=== PATIENT | male | born 1955 | race Caucasian/White ===

== ENCOUNTER 2017-02-23 23:12 | Emergency (ER) | payer BC, OTHER ==
[~2017-02-23] VITALS: Ht 182.9 cm; Wt 101.5 kg
[~2017-02-23 23:12] MED LIST: CITA10TA4 PO; LOSA50TA PO; NAPR500T PO; PANT40TA3 PO; ZYRT10TA PO
[2017-02-23 23:26] VITALS: BP 128/72; PULSE 57; RESP 16; TEMP 97.5; O2SAT 95
--- NOTE | 2017-02-23 23:45 | PD ---
HPI Chief Complaint: urinating clots Time Seen by Provider: 23:43 Travel History International Travel<30 days: No Contact w/Intl Traveler<30days: No Traveled to known affect area: No History of Present Illness HPI The patient is a 61-year-old male who has a history of prostate cancer and had a biopsy morning, 4 days ago. He comes in because of penile bleeding. He is able to make urine but states he is passing some clots. He denies any fever. He is not on any anticoagulants. PFSH Past Medical History Diminished Hearing: No Past Surgical History Cholecystectomy: Yes Tonsillectomy: Yes Other Surgery: Yes (plates in left hand and arm) Social History Alcohol Use: Yes (beer daily 3) Tobacco Use: No (chews tobacco but quit 3 weeks ago) Substance Use: No Allergies-Medications (Allergen,Severity, Reaction): Coded Allergies: No Known Allergies (Verified , 02/23/17) Reported Meds & Prescriptions Reported Meds & Active Scripts Active Reported Cetirizine (Cetirizine HCl) 10 Mg Tab 10 Mg PO DAILY Naproxen 500 Mg Tab 500 Mg PO BID Losartan (Losartan Potassium) 50 Mg Tab 50 Mg PO DAILY Citalopram (Citalopram Hydrobromide) 10 Mg Tab 5 Mg PO DAILY Pantoprazole (Pantoprazole Sodium) 40 Mg Tab 40 Mg PO DAILY Review of Systems Except as stated in HPI: all other systems reviewed are Neg Physical Exam Narrative GENERAL: The patient is alert, oriented 3 in no apparent distress. He does not appear anemic. His vital signs are normal. SKIN: Focused skin assessment warm/dry. HEAD: Atraumatic. Normocephalic. EYES: Pupils equal and round. No scleral icterus. No injection or drainage. ENT: No nasal bleeding or discharge. Mucous membranes pink and moist. NECK: Trachea midline. No JVD. CARDIOVASCULAR: Regular rate and rhythm. No murmur appreciated. RESPIRATORY: No accessory muscle use. Clear to auscultation. Breath sounds equal bilaterally. GASTROINTESTINAL: Abdomen soft, non-tender, nondistended. Hepatic and splenic margins not palpable. MUSCULOSKELETAL: No obvious deformities. No clubbing. No cyanosis. No edema. NEUROLOGICAL: Awake and alert. No obvious cranial nerve deficits. Motor grossly within normal limits. Normal speech. PSYCHIATRIC: Appropriate mood and affect; insight and judgment normal. Data Data Last Documented VS Vital Signs Date Time Temp Pulse Resp B/P Pulse Ox O2 Delivery O2 Flow Rate FiO2 02/24/17 00:30 58 18 134/68 97 Room Air 02/23/17 23:26 97.5 Orders Complete Blood Count With Diff (02/23/17 23:43) Urinalysis - C+S If Indicated (02/23/17 23:43) Labs Laboratory Tests Test 02/24/17 02/24/17 00:00 00:05 Urine Color RED Urine Turbidity TURBID Urine pH 7.5 Urine Specific [place] GREATER THAN 1.035 Urine Protein 300 OR GREATER mg/dL Urine Glucose (UA) 250 mg/dL Urine Ketones NEG mg/dL Urine Occult Blood LARGE Urine Nitrite POS Urine Bilirubin NEG Urine Leukocyte Esterase TRACE Urine RBC INNUM /hpf Urine WBC 0-2 /hpf Urine Squamous Epithelial 0-5 /hpf Cells Microscopic Urinalysis Comment CULT NOT INDICATED White Blood Count 7.3 TH/MM3 Red Blood Count 4.26 MIL/MM3 Hemoglobin 14.3 GM/DL Hematocrit 40.6 % Mean Corpuscular Volume 95.4 FL Mean Corpuscular Hemoglobin 33.5 PG Mean Corpuscular Hemoglobin 35.1 % Concent Red Cell Distribution Width 11.6 % Platelet Count 178 TH/MM3 Mean Platelet Volume 7.4 FL Neutrophils (%) (Auto) 65.4 % Lymphocytes (%) (Auto) 21.9 % Monocytes (%) (Auto) 10.3 % Eosinophils (%) (Auto) 2.0 % Basophils (%) (Auto) 0.4 % Neutrophils # (Auto) 4.8 TH/MM3 Lymphocytes # (Auto) 1.6 TH/MM3 Monocytes # (Auto) 0.8 TH/MM3 Eosinophils # (Auto) 0.1 TH/MM3 Basophils # (Auto) 0.0 TH/MM3 CBC Comment DIFF FINAL Differential Comment MDM Medical Decision Making Medical Screen Exam Complete: Yes Emergency Medical Condition: Yes Medical Record Reviewed: Yes Interpretation(s) The urine shows large amounts of blood with innumerable red cells. The CBC is normal, the patient is not anemic. Differential Diagnosis Urethral obstruction from clots, hematuria without urethral obstruction, anemia Narrative Course The patient has hematuria without urethral obstruction. Should he be unable to urinate then he will need a Blood catheter and should return to emergency department. He is not losing enough blood to the urine to make him anemic at this time. He should follow-up with his urologist later this week. Diagnosis Primary Impression: Hematuria, gross Additional Impression: History of prostate surgery Additional Instructions: As we discussed, if you cannot urinate you will have to return to emergency department for that Blood catheter. I hope this does not happen. On the fifth call your urologist to set up an appointment. Tell his medical secretary receptionist that you are urinating clots and need to be seen as soon as possible. Increase your liquid intake. Disposition: 01 DISCHARGE HOME Condition: Stable Clint Xiao MD Feb 23, 2017 23:45
[2017-02-24] MEDS ORDERED: CETI10 PO (00:02)
[2017-02-24 00:18] LABS: AUTOMATED NEUTROPHIL # 4.8 TH/MM3 (1.8-7.7); BASOPHIL % 0.4 % (0.0-2.0); EOSINOPHIL # 0.1 TH/MM3 (0-0.4); HEMATOCRIT 40.6 % (39.0-51.0); HEMO FLAGS DIFF FINAL; LYMPH % 21.9 % (9.0-44.0); LYMPHOCYTE # 1.6 TH/MM3 (1.0-4.8); MEAN CELL VOLUME 95.4 FL (80.0-100.0); MEAN CORPUSCULAR HEMOGLOBIN 33.5 PG (27.0-34.0); MEAN CORPUSCULAR HGB CONC 35.1 % (32.0-36.0); MONO % 10.3 % (0.0-8.0); NEUT % 65.4 % (16.0-70.0); PLATELET COUNT 178 TH/MM3 (150-450); RED BLOOD COUNT 4.26 MIL/MM3 (4.50-5.90); RED CELL DISTRIBUTION WIDTH 11.6 % (11.6-17.2); WHITE BLOOD COUNT 7.3 TH/MM3 (4.0-11.0)
[2017-02-24 00:23] LABS: BLOOD, URINE LARGE (NEG); GLUCOSE,URINE 250 mg/dL (NEG); KETONE, URINE NEG (NEG); PH, URINE 7.5 (5.0-8.5)
[2017-02-24 00:25] LABS: NITRITE,URINE POS (NEG)
[2017-02-24 00:26] LABS: RBC, URINE INNUM /hpf (0-3); SQUAMOUS EPITHELIAL CELL URINE 0-5 /hpf (0-5); URINE COLOR RED (YELLW/STRAW)
[2017-02-24 00:27] LABS: WBC, URINE 0-2 /hpf (0-5)
[2017-02-24 00:28] LABS: COMMENT (UR) CULT NOT INDICATED; CULTURE IF INDICATED CULT NOT INDICATED
[2017-02-24 00:30] VITALS: BP 134/68; PULSE 58; RESP 18; O2SAT 97
[2017-02-24 01:45] VITALS: BP 139/71
== END 2017-02-24 01:48 | disposition home or self-care (01) ==
LOC: PHED 23:12
DX: R31.0 Gross hematuria (principal); Z85.46 Personal history of malignant neoplasm of prostate
CPT/HCPCS: 81001; 85025; 99283

== ENCOUNTER 2017-10-31 15:23 | Observation (INO) | payer OTHER ==
[2017-10-31] VITALS (10 sets, daily range): BP systolic 82–153; BP diastolic 54–94; PULSE 60–91; RESP 18; TEMP 96.4–97.5; O2SAT 92–99
[~2017-10-31] VITALS: Ht 182.9 cm; Wt 102.8 kg
[~2017-10-31 15:23] MED LIST changes: +CETI10 PO; -NAPR500T PO; +NAPR500T2 PO; -ZYRT10TA PO
[2017-10-31] MEDS ORDERED: SODIUM CHLORIDE 0.9% FLUSH 10 ML FLUSH IVF PRN (15:30)
--- NOTE | 2017-10-31 15:47 | PD ---
HPI Chief Complaint: Neuro Symptoms/ Deficits Time Seen by Provider: 15:30 Travel History International Travel<30 days: No Contact w/Intl Traveler<30days: No Traveled to known affect area: No History of Present Illness HPI 62-year-old male arrives to the ER by private vehicle. About 1 hour prior to ER arrival the patient was at home with company about fci through his first bottle of beer when he became somewhat stuporous. The patient walked into his house and ultimately became unresponsive for a minute. The daughter believes there might have been a facial droop on the right side. Total duration of altered mental status was on the order of 10 minutes. Patient was therefore brought right here. In the ER the patient has no specific medical complaints and states he has been in his normal state of health, good health, for the past several days. There is no new or different medication. No similar prior events. No history of diabetes hypertension hyperlipidemia or coronary artery disease. PFSH Past Medical History Cancer: Yes (Prostate cancer) Diminished Hearing: No Hypertension: Yes Inguinal Hernia: Yes Past Surgical History Cholecystectomy: Yes Tonsillectomy: Yes Other Surgery: Yes (plates in left hand and arm, inguinal hernia repair) Social History Alcohol Use: Yes (Daily ) Tobacco Use: No Substance Use: No Allergies-Medications (Allergen,Severity, Reaction): Coded Allergies: No Known Allergies (Verified Allergy, Unknown, 10/31/17) Reported Meds & Prescriptions Reported Meds & Active Scripts Active Reported Cetirizine (Cetirizine HCl) 10 Mg Tab 10 Mg PO DAILY Losartan (Losartan Potassium) 50 Mg Tab 50 Mg PO DAILY Citalopram (Citalopram Hydrobromide) 10 Mg Tab 5 Mg PO DAILY Pantoprazole (Pantoprazole Sodium) 40 Mg Tab 40 Mg PO DAILY Review of Systems Except as stated in HPI: all other systems reviewed are Neg Physical Exam Narrative GENERAL: 62-year-old male well-nourished well-developed no acute distress pleasant Vital Signs Date Time Temp Pulse Resp B/P (MAP) Pulse Ox O2 Delivery O2 Flow Rate FiO2 10/31/17 15:43 97 Room Air 10/31/17 15:40 71 18 82/60 (67) 97 Room Air 10/31/17 15:38 97 Room Air 10/31/17 15:25 97.5 72 18 90/54 (66) 92 SKIN: Warm and dry. HEAD: Atraumatic. Normocephalic. EYES: Pupils equal and round. No scleral icterus. No injection or drainage. ENT: No nasal bleeding or discharge. Mucous membranes pink and moist. NECK: Trachea midline. No JVD. CARDIOVASCULAR: Regular rate and rhythm. RESPIRATORY: No accessory muscle use. Clear to auscultation. Breath sounds equal bilaterally. GASTROINTESTINAL: Abdomen soft, non-tender, nondistended. Hepatic and splenic margins not palpable. MUSCULOSKELETAL: Extremities without clubbing, cyanosis, or edema. No obvious deformities. NEUROLOGICAL: Cranial nerves III through XII are normal. Speech memory mentation normal. There is no pronator drift. Motor function upper and lower extremities is normal 5 over 5 throughout and symmetric. PSYCHIATRIC: Appropriate mood and affect; insight and judgment normal. Data Data Last Documented VS Vital Signs Date Time Temp Pulse Resp B/P (MAP) Pulse Ox O2 Delivery O2 Flow Rate FiO2 10/31/17 16:01 65 18 108/64 (79) 98 Room Air 10/31/17 15:25 97.5 Orders Orders Electrocardiogram (10/31/17 15:30) Prothrombin Time / Inr (Pt) (10/31/17 15:30) Act Partial Throm Time (Ptt) (10/31/17 15:30) Complete Blood Count With Diff (10/31/17 15:30) Comprehensive Metabolic Panel (10/31/17 15:30) Creatine Kinase (Cpk) (10/31/17 15:30) Drug Screen, Random Urine (10/31/17 15:30) Troponin I (10/31/17 15:30) Urinalysis - C+S If Indicated (10/31/17 15:30) Ct Brain W/O Iv Contrast(Rout) (10/31/17 15:30) Chest, Single Ap (10/31/17 15:30) Ecg Monitoring (10/31/17 15:30) Iv Access Insert/Monitor (10/31/17 15:30) Resp Oxygen Nc Stroke (10/31/17 ) Oximetry (10/31/17 15:30) Blood Glucose (10/31/17 15:30) Sodium Chloride 0.9% Flush (Ns Flush) (10/31/17 15:30) Ct Pulmonary Angiogram (10/31/17 15:42) Alcohol (Ethanol) (10/31/17 15:47) Drug Screen, Random Urine (10/31/17 15:47) Sodium Chlor 0.9% 1000 Ml Inj (Ns 1000 M (10/31/17 16:00) Iohexol 350 Inj (Omnipaque 350 Inj) (10/31/17 16:08) Admit Order (Ed Use Only) (10/31/17 ) Carbon Lamp Cleaner / Telemetry MALLORY.Q8H (10/31/17 16:51) Vital Signs (Adult) Q4H (10/31/17 16:51) Diet Heart Healthy (10/31/17 Dinner) Activity Bed Rest (10/31/17 16:51) Labs Laboratory Tests Test 10/31/17 15:36 White Blood Count 7.4 TH/MM3 Red Blood Count 4.22 MIL/MM3 Hemoglobin 14.1 GM/DL Hematocrit 40.0 % Mean Corpuscular Volume 94.7 FL Mean Corpuscular Hemoglobin 33.3 PG Mean Corpuscular Hemoglobin Concent 35.1 % Red Cell Distribution Width 11.3 % Platelet Count 208 TH/MM3 Mean Platelet Volume 7.3 FL Neutrophils (%) (Auto) 59.8 % Lymphocytes (%) (Auto) 27.7 % Monocytes (%) (Auto) 10.2 % Eosinophils (%) (Auto) 1.6 % Basophils (%) (Auto) 0.7 % Neutrophils # (Auto) 4.4 TH/MM3 Lymphocytes # (Auto) 2.0 TH/MM3 Monocytes # (Auto) 0.8 TH/MM3 Eosinophils # (Auto) 0.1 TH/MM3 Basophils # (Auto) 0.1 TH/MM3 CBC Comment DIFF FINAL Differential Comment Prothrombin Time 10.1 SEC Prothromb Time International Ratio 1.0 RATIO Activated Partial Thromboplast Time 22.4 SEC Blood Urea Nitrogen 15 MG/DL Creatinine 1.20 MG/DL Random Glucose 130 MG/DL Total Protein 7.2 GM/DL Albumin 3.7 GM/DL Calcium Level 7.9 MG/DL Alkaline Phosphatase 65 U/L Aspartate Amino Transf (AST/SGOT) 21 U/L Alanine Aminotransferase (ALT/SGPT) 30 U/L Total Bilirubin 0.5 MG/DL Sodium Level 139 MEQ/L Potassium Level 3.4 MEQ/L Chloride Level 103 MEQ/L Carbon Dioxide Level 26.7 MEQ/L Anion Gap 9 MEQ/L Estimat Glomerular Filtration Rate 61 ML/MIN Total Creatine Kinase 91 U/L Troponin I LESS THAN 0.02 NG/ML Ethyl Alcohol Level 3 MG/DL [facility] Medical Decision Making Medical Screen Exam Complete: Yes Emergency Medical Condition: Yes Medical Record Reviewed: Yes Differential Diagnosis syncope, tia, etoh, arrhytmia, PE Narrative Course CBC & BMP Diagram 10/31/17 15:36 Total Protein 7.2, Albumin 3.7, Calcium Level 7.9 L, Alkaline Phosphatase 65, Aspartate Amino Transf (AST/SGOT) 21, Alanine Aminotransferase (ALT/SGPT) 30, Total Bilirubin 0.5 Tn < 0.02 EtOH < 3 INR 1.0 EKG: sinus, rate 72, possible LVF Last Impressions CT Angiography 10/31/17 1542 Signed Impressions: Service Date/Time: Tuesday, October 31, 2017 15:49 - CONCLUSION: No evidence of pulmonary embolus Quang Butterfield MD Head CT 10/31/17 1530 Signed Impressions: Service Date/Time: Tuesday, October 31, 2017 15:46 - CONCLUSION: No acute intracranial findings. Quang Butterfield MD Chest X-Ray 10/31/17 1530 Signed Impressions: Service Date/Time: Tuesday, October 31, 2017 15:38 - CONCLUSION: Widened mediastinal silhouette air present tortuous or dilated aorta. Mildly prominent cardiac silhouette. Quang Butterfield MD Syncope event possible TIA BP increased to 137/77 after 1L NS case d/w Dr Singleton for [facility] Diagnosis Primary Impression: Syncope Qualified Codes: R55 - Syncope and collapse Additional Impression: Hypotension Qualified Codes: I95.9 - Hypotension, unspecified Admitting Information Admitting Physician Requests: Observation Kelechi Rai MD Oct 31, 2017 15:47
[2017-10-31 15:54] LABS: AUTOMATED NEUTROPHIL # 4.4 TH/MM3 (1.8-7.7); BASOPHIL # 0.1 TH/MM3 (0-0.2); BASOPHIL % 0.7 % (0.0-2.0); EOSINOPHIL # 0.1 TH/MM3 (0-0.4); EOSINOPHIL % 1.6 % (0.0-4.0); HEMOGLOBIN 14.1 GM/DL (13.0-17.0); LYMPH % 27.7 % (9.0-44.0); MEAN CELL VOLUME 94.7 FL (80.0-100.0); MEAN CORPUSCULAR HEMOGLOBIN 33.3 PG (27.0-34.0); MEAN CORPUSCULAR HGB CONC 35.1 % (32.0-36.0); MEAN PLATELET VOLUME 7.3 FL (7.0-11.0); MONO % 10.2 % (0.0-8.0); MONOCYTE # 0.8 TH/MM3 (0-0.9); NEUT % 59.8 % (16.0-70.0); PLATELET COUNT 208 TH/MM3 (150-450); RED BLOOD COUNT 4.22 MIL/MM3 (4.50-5.90); RED CELL DISTRIBUTION WIDTH 11.3 % (11.6-17.2); WHITE BLOOD COUNT 7.4 TH/MM3 (4.0-11.0)
--- NOTE | 2017-10-31 15:59 | RADRPT ---
EXAM DATE/TIME: 10/31/2017 15:38 [facility] COMPARISON: No previous studies available for comparison. INDICATIONS : Syncope, slurred speach, chest pains MEDICAL HISTORY : Hypertension. SURGICAL HISTORY : None. ENCOUNTER: Initial ACUITY: 1 day PAIN SCORE: 3/10 LOCATION: Bilateral chest FINDINGS: Single AP view of the chest. Low lung volumes. The lungs are clear. Mediastinal silhouette is somewha t widened. Cardiac silhouette is mildly prominent. No evidence of pleural effusion or pneumothorax. CONCLUSION: Widened mediastinal silhouette air present tortuous or dilated aorta. Mildly prominent ca rdiac silhouette. Quang Butterfield MD on October 31, 2017 at 15:56 Board Certified Radiologist. This report was verified electronically.
[2017-10-31] MEDS ORDERED: SODIUM CHLOR 0.9% 1000 ML INJ 1,000 ML IV ONE (16:00)
[2017-10-31 16:05] LABS: CHLORIDE 103 MEQ/L (98-107); SODIUM (NA) 139 MEQ/L (136-145)
[2017-10-31 16:08] LABS: CALCIUM 7.9 MG/DL (8.5-10.1)
[2017-10-31] MEDS ORDERED: IOHEXOL 350 MG/ML 10 ML VIAL (for RAD DIAG) IVCONTRAST ONE (16:08)
[2017-10-31 16:09] LABS: ALBUMIN 3.7 GM/DL (3.4-5.0); BICARBONATE 26.7 MEQ/L (21.0-32.0); BLOOD UREA NITROGEN 15 MG/DL (7-18); GLUCOSE,RANDOM 130 MG/DL (74-106)
[2017-10-31 16:10] LABS: PROTHROMBIN TIME - PATIENT 10.1 SEC (9.8-11.6)
[2017-10-31 16:12] LABS: ALT (GPT) 30 U/L (12-78); AST (GOT) 21 U/L (15-37); GLOMERULAR FILTRATION RATE 61 ML/MIN (>89)
[2017-10-31 16:13] LABS: TOTAL BILIRUBIN ADULT 0.5 MG/DL (0.2-1.0)
[2017-10-31 16:14] LABS: TOTAL PROTEIN 7.2 GM/DL (6.4-8.2)
[2017-10-31 16:15] LABS: ALKALINE PHOSPHATASE 65 U/L (45-117)
[2017-10-31 16:17] LABS: TROPONIN I LESS THAN 0.02 NG/ML (0.02-0.05)
--- NOTE | 2017-10-31 16:21 | RADRPT ---
EXAM DATE/TIME: 10/31/2017 15:46 [facility] COMPARISON: No previous studies available for comparison. INDICATIONS : Slurred speech, evaluate for TIA, low BP,dizziness. RADIATION DOSE: 65.68 CTDIvol (mGy) ; Tabletop CT Head MEDICAL HISTORY : Hypertension. prostate ca SURGICAL HISTORY : Tonsillectomy. Cholecystectomy.Inguinal hernia repair. ENCOUNTER: Initial ACUITY: 1 day PAIN SCALE: 0/10 LOCATION: cranial TECHNIQUE: Multiple contiguous axial images were obtained of the head. Using automated exposure control and adj ustment of the mA and/or kV according to patient size, radiation dose was kept as low as reasonably a chievable to obtain optimal diagnostic quality images. DICOM format image data is available electro nically for review and comparison. FINDINGS: CEREBRUM: The ventricles are normal for age. No evidence of midline shift, mass lesion, hemorrhage or acute in farction. No extra-axial fluid collections are seen. POSTERIOR FOSSA: The cerebellum and brainstem are intact. The 4th ventricle is midline. The cerebellopontine angle i s unremarkable. EXTRACRANIAL: The visualized portion of the orbits is intact. SKULL: The calvaria is intact. No evidence of skull fracture. CONCLUSION: No acute intracranial findings. Quang Butterfield MD on October 31, 2017 at 16:18 Board Certified Radiologist. This report was verified electronically.
--- NOTE | 2017-10-31 16:24 | RADRPT ---
EXAM DATE/TIME: 10/31/2017 15:49 [facility] COMPARISON: No previous studies available for comparison. INDICATIONS : Syncopal episode IV CONTRAST: 75 cc Omnipaque 350 (iohexol) IV RADIATION DOSE: 17.26 CTDIvol (mGy) MEDICAL HISTORY : Hypertension. ca prostate SURGICAL HISTORY : Cholecystectomy. Tonsillectomy.Inguinal hernia repair. ENCOUNTER: Initial ACUITY: 1 day PAIN SCALE: 0/10 LOCATION: chest TECHNIQUE: Volumetric scanning of the chest was performed using a pulmonary embolism protocol MIP images were re constructed. Using automated exposure control and adjustment of the mA and/or kV according to patien t size, radiation dose was kept as low as reasonably achievable to obtain optimal diagnostic quality images. DICOM format image data is available electronically for review and comparison. Follow-up recommendations for detected pulmonary nodules are based at a minimum on nodule size and pa tient risk factors according to Fleischner Society Guidelines. FINDINGS: PULMONARY ARTERIES: No filling defects are seen in the pulmonary arteries through the segmental level. LUNGS: There is no consolidation or pneumothorax . No concerning pulmonary nodule is visualized. PLEURAE: There is no pleural thickening or pleural effusion. MEDIASTINUM: The thoracic aorta is tortuous resulting in the widened silhouette on chest x-ray. No enlarged lymph nodes. No aneurysmal dilatation. MUSCULOSKELETAL: Within normal limits for patient age. MISCELLANEOUS: The visualized upper abdominal organs demonstrate no acute abnormality. CONCLUSION: No evidence of pulmonary embolus Quang Butterfield MD on October 31, 2017 at 16:20 Board Certified Radiologist. This report was verified electronically.
[2017-10-31] MEDS ORDERED: SODIUM CHLORIDE 0.9% FLUSH 10 ML FLUSH IV FLUSH PRN (17:00)
[2017-10-31] MEDS ORDERED: POTASSIUM CHLORIDE 20 MEQ CONTROLLED RELEASE TAB PO ONE (17:15)
[2017-10-31] MEDS: ASPIRIN 325 MG TAB PO SCH (17:36)
[2017-10-31 17:40] LABS: BILIRUBIN, URINE NEG (NEG); BLOOD, URINE TRACE (NEG); GLUCOSE,URINE NEG (NEG); KETONE, URINE NEG (NEG); NITRITE,URINE NEG (NEG); PH, URINE 5.5 (5.0-8.5); URINE COLOR YELLOW (YELLW/STRAW); URINE LEUKOCYTE ESTERASE NEG (NEG)
[2017-10-31 17:50] LABS: RBC, URINE 0-3 /hpf (0-3); WBC, URINE 0-2 /hpf (0-5)
[2017-10-31] MEDS ORDERED: PILL SPLITTER OTHER PRN (19:15)
[2017-10-31] MEDS: SODIUM CHLORIDE 0.9% FLUSH 10 ML FLUSH IV FLUSH SCH (21:04)
--- NOTE | 2017-10-31 21:54 | EKG ---
Date Performed: 10/31/2017 Time Performed: 15:27:52 PTAGE: 62 years EKG: Sinus rhythm VOLTAGE CRITERIA FOR LVH ABNORMAL ECG Compared to prior electrocardiogram, Nonspecific T wave change s are less marked . PREVIOUS TRACING : 06/22/2012 18.46 DOCTOR: Luis Simon Interpretating Date/Time 10/31/2017 21:52:36
[2017-11-01] VITALS (8 sets, daily range): BP systolic 105–163; BP diastolic 59–103; PULSE 55–93; RESP 16–20; TEMP 97–98.9; O2SAT 95–100
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
[2017-11-01] MEDS ORDERED: GADODIAMIDE PF 287 MG/ML 20 ML VIAL (for RAD MRI) IVCONTRAST ONE (09:21)
--- NOTE | 2017-11-01 09:22 | RADRPT ---
EXAM DATE/TIME: 11/01/2017 08:35 [facility] COMPARISON: No previous studies available for comparison. INDICATIONS : Syncope with collapse. MEDICAL HISTORY : Benign prostatic hyperplasia, (BPH) Carcinoma, prostate. SURGICAL HISTORY : Cholecystectomy. Inguinal hernia repair. Tonsillectomy. ENCOUNTER: Initial ACUITY: 1 day PAIN SCORE: 0/10 LOCATION: cranial Please note a normal MRA of the brain does not entirely exclude the possibility of a small aneurysm, nor the possibility of distal intracranial vessel disease. TECHNIQUE: 3D time of flight MRA was performed. Source images, multiplanar STS MIP, and 3D volume MIP reconstru ctions were reviewed. FINDINGS: There is excellent visualization of the major intracranial arteries out to the second-order branch ve ssels. The A1 segment of the right anterior cerebral artery is hypoplastic. The left posterior cerebral vidal ry is supplied by the anterior circulation. There is no evidence of luminal irregularity or stenosis. There is notice of focal aneurysm or vascul ar displacement. CONCLUSION: 1. 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 2. Otherwise normal exam without evidence of significant atherosclerotic disease, vasculopathy, aneur ysm or vascular displacement Uli Thibodeaux MD on November 01, 2017 at 9:16 Board Certified Radiologist. This report was verified electronically.
--- NOTE | 2017-11-01 09:27 | RADRPT ---
EXAM DATE/TIME: 11/01/2017 08:35 [facility] COMPARISON: No previous studies available for comparison. INDICATIONS : Syncope with collapse. CONTRAST: 20 cc Omniscan (gadodiamide) IV MEDICAL HISTORY : Carcinoma, prostate. Benign prostatic hyperplasia, (BPH) SURGICAL HISTORY : Tonsillectomy. Cholecystectomy. Inguinal hernia repair. ENCOUNTER: Initial ACUITY: 1 day PAIN SCORE: 0/10 LOCATION: cranial TECHNIQUE: Multiplanar, multisequence MRI of the brain was performed both prior to and following the administrat ion of paramagnetic contrast. FINDINGS: CEREBRUM: The ventricles are normal for age. No evidence of midline shift, mass lesion, hemorrhage or acute in farction. No extraaxial fluid collections are seen. The pituitary gland and suprasellar cistern are normal in configuration. WHITE MATTER: No significant signal abnormalities are seen in the white matter. POSTERIOR FOSSA: The cerebellum and brainstem are intact. The 4th ventricle is midline. The cerebellopontine angle is unremarkable. The cerebellar tonsils are normal in position. DIFFUSION IMAGING: No focal areas of restricted diffusion are seen. No evidence of acute infarction. EXTRACRANIAL: The visualized portions of the orbits and paranasal sinuses are unremarkable. POST-CONTRAST: No abnormal areas of parenchymal or dural enhancement. No evidence of blood-brain barrier breakdown. CONCLUSION: 1. Unremarkable exam. 2. No evidence of acute infarct, hemorrhage, mass or edema. 3. No enhancing intra-or extra axial lesions. Uli Thibodeaux MD on November 01, 2017 at 9:23 Board Certified Radiologist. This report was verified electronically.
[2017-11-01] MEDS: ESCITALOPRAM OXALATE 10 MG TAB PO SCH (09:31)
[2017-11-01] MEDS: ASPIRIN 325 MG TAB PO SCH (09:31)
[2017-11-01] MEDS: PANTOPRAZOLE SOD 40 MG DELAYED RELEASE TAB PO SCH (09:32)
[2017-11-01] MEDS: SODIUM CHLORIDE 0.9% FLUSH 10 ML FLUSH IV FLUSH SCH ×2 (09:32→20:42)
[2017-11-01 10:41] LABS: CALCIUM 8.1 MG/DL (8.5-10.1)
[2017-11-01 10:42] LABS: BICARBONATE 25.8 MEQ/L (21.0-32.0)
[2017-11-01 10:45] LABS: CREATININE 0.96 MG/DL (0.60-1.30)
[2017-11-01] MEDS ORDERED: IBUPROFEN 600 MG TAB PO PRN (14:30)
[2017-11-01] MEDS ORDERED: ACETAMINOPHEN 325 MG TAB PO PRN (14:30)
[2017-11-01 14:51] LABS: CHOLESTEROL/ HDL RATIO 3.72 RATIO; HDL CHOLESTEROL 46.2 MG/DL (40.0-60.0)
[2017-11-01 15:12] LABS: FREE T4 0.77 NG/DL (0.76-1.46)
--- NOTE | 2017-11-01 15:43 | HHI.PR ---
Subjective Remarks Patient has no symptoms other than just a dull postoccipital headache. Objective Vitals Vital Signs Date Time Temp Pulse Resp B/P (MAP) Pulse Ox O2 Delivery O2 Flow Rate FiO2 11/01/17 12:00 97.3 58 18 137/76 (96) 96 139/93 (108) 156/81 (106) 11/01/17 08:00 97.7 55 18 133/85 (101) 97 11/01/17 04:20 98.9 56 18 110/66 (81) 100 11/01/17 00:02 97.0 60 16 105/59 (74) 100 10/31/17 21:49 96.4 65 18 149/94 (112) 99 10/31/17 21:49 99 21 10/31/17 20:36 64 16 116/73 (87) 97 10/31/17 20:00 65 10/31/17 20:00 91 18 153/88 (109) 97 Room Air 10/31/17 19:05 65 18 141/77 (98) 98 Room Air 10/31/17 19:05 18 98 Room Air 10/31/17 17:28 60 18 137/75 (95) 99 Room Air 10/31/17 16:27 64 18 137/77 (97) 98 Room Air 10/31/17 16:01 65 18 108/64 (79) 98 Room Air 10/31/17 15:47 97 Room Air 10/31/17 15:43 97 Room Air 10/31/17 15:40 71 18 82/60 (67) 97 Room Air 10/31/17 15:38 97 Room Air Result Diagram: 10/31/17 1536 11/01/17 1008 Other Results Laboratory Tests Test 10/31/17 15:36 10/31/17 17:23 10/31/17 21:25 11/01/17 10:08 White Blood Count 7.4 TH/MM3 Red Blood Count 4.22 MIL/MM3 Hemoglobin 14.1 GM/DL Hematocrit 40.0 % Mean Corpuscular Volume 94.7 FL Mean Corpuscular Hemoglobin 33.3 PG Mean Corpuscular Hemoglobin Concent 35.1 % Red Cell Distribution Width 11.3 % Platelet Count 208 TH/MM3 Mean Platelet Volume 7.3 FL Neutrophils (%) (Auto) 59.8 % Lymphocytes (%) (Auto) 27.7 % Monocytes (%) (Auto) 10.2 % Eosinophils (%) (Auto) 1.6 % Basophils (%) (Auto) 0.7 % Neutrophils # (Auto) 4.4 TH/MM3 Lymphocytes # (Auto) 2.0 TH/MM3 Monocytes # (Auto) 0.8 TH/MM3 Eosinophils # (Auto) 0.1 TH/MM3 Basophils # (Auto) 0.1 TH/MM3 CBC Comment DIFF FINAL Differential Comment Prothrombin Time 10.1 SEC Prothromb Time International Ratio 1.0 RATIO Activated Partial Thromboplast Time 22.4 SEC Blood Urea Nitrogen 15 MG/DL 15 MG/DL Creatinine 1.20 MG/DL 0.96 MG/DL Random Glucose 130 MG/DL 147 MG/DL Total Protein 7.2 GM/DL Albumin 3.7 GM/DL Calcium Level 7.9 MG/DL 8.1 MG/DL Alkaline Phosphatase 65 U/L Aspartate Amino Transf (AST/SGOT) 21 U/L Alanine Aminotransferase (ALT/SGPT) 30 U/L Total Bilirubin 0.5 MG/DL Sodium Level 139 MEQ/L 140 MEQ/L Potassium Level 3.4 MEQ/L 4.0 MEQ/L Chloride Level 103 MEQ/L 107 MEQ/L Carbon Dioxide Level 26.7 MEQ/L 25.8 MEQ/L Anion Gap 9 MEQ/L 7 MEQ/L Estimat Glomerular Filtration Rate 61 ML/MIN 79 ML/MIN Total Creatine Kinase 91 U/L Troponin I LESS THAN 0.02 NG/ML LESS THAN 0.02 NG/ML Ethyl Alcohol Level 3 MG/DL Urine Collection Type CLEAN CATCH Urine Color YELLOW Urine Turbidity CLEAR Urine pH 5.5 Urine Specific [place] LESS/EQUAL 1.005 Urine Protein NEG mg/dL Urine Glucose (UA) NEG mg/dL Urine Ketones NEG mg/dL Urine Occult Blood TRACE Urine Nitrite NEG Urine Bilirubin NEG Urine Urobilinogen 0.2 MG/DL Urine Leukocyte Esterase NEG Urine RBC 0-3 /hpf Urine WBC 0-2 /hpf Urine Fine Granular Casts 6-9 /lpf Microscopic Urinalysis Comment CULT NOT INDICATED Urine Opiates Screen NEG Urine Barbiturates Screen NEG Urine Amphetamines Screen NEG Urine Benzodiazepines Screen NEG Urine Cocaine Screen NEG Urine Cannabinoids Screen POS Erythrocyte Sedimentation Rate 6 mm/hr Triglycerides Level 282 MG/DL Cholesterol Level 172 MG/DL LDL Cholesterol 69 MG/DL HDL Cholesterol 46.2 MG/DL Cholesterol/HDL Ratio 3.72 RATIO Vitamin B12 Level 513 PG/ML Free Thyroxine 0.77 NG/DL Thyroid Stimulating Hormone 3rd Gen 0.761 uIU/ML Test 11/01/17 12:05 Imaging Last Impressions Head Magnetic Resonance Angiography 11/01/17 0000 Signed Impressions: Service Date/Time: Wednesday, November 01, 2017 08:35 - CONCLUSION: 1. 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 2. Otherwise normal exam without evidence of significant atherosclerotic disease, vasculopathy, aneurysm or vascular displacement Uli Thibodeaux MD Brain MRI 11/01/17 0000 Signed Impressions: Service Date/Time: Wednesday, November 01, 2017 08:35 - CONCLUSION: 1. Unremarkable exam. 2. No evidence of acute infarct, hemorrhage, mass or edema. 3. No enhancing intra-or extra axial lesions. Uli Thibodeaux MD CT Angiography 10/31/17 1542 Signed Impressions: Service Date/Time: Tuesday, October 31, 2017 15:49 - CONCLUSION: No evidence of pulmonary embolus Quang Butterfield MD Head CT 10/31/17 1530 Signed Impressions: Service Date/Time: Tuesday, October 31, 2017 15:46 - CONCLUSION: No acute intracranial findings. Quang Butterfield MD Chest X-Ray 10/31/171529 Signed Impressions: Service Date/Time: Tuesday, October 31, 2017 15:38 - CONCLUSION: Widened mediastinal silhouette air present tortuous or dilated aorta. Mildly prominent cardiac silhouette. Quang Butterfield MD Objective Remarks Exam: [id number] in no distress. HEENT: Pupils equal, no scleral icterus, mouth negative Neck: No JVD Heart: RRR without murmur Lungs: clear Abdomen: Soft, nontender Extremities: No edema Neuro: alert, oriented, normal motor and sensory exam, CN intact A/P Assessment and Plan Assessment: --Syncopal episode --Episode of some slight slurred speech and slight confusion --Hypertension --Cancer of the prostate gland on surveillance only --Depression --Allergic rhinitis --GERD --Mild elevation of triglycerides with normal cholesterol levels--would recommend just diet therapy Plan: The neurologist has yet to see the patient today but Dr Gordon did order an EEG and a carotid ultrasound and 2D echo have yet to be done. Continue aspirin. His Losartan is still on hold since his BP was low on admission. His pressure is up from admission. Orthostatic BP readings show a slight increase in his BP when going from a supine to standing position. If I resume his Losartan I would be in favor of just using 25mg daily instead of the 50mg daily he was on at home. Discharge when cleared by neurology. He may have had some vagal episode causing the syncope because he initially felt clammy and sweating and hot which could have led to his drop in blood pressure that caused him to pass out (his BP initially in the ER was low). He is clinically without any symptoms. Toni Singleton MD Nov 01, 2017 15:43
--- NOTE | 2017-11-01 16:55 | RADRPT ---
EXAM DATE/TIME: 11/01/2017 15:51 [facility] COMPARISON: No previous studies available for comparison. INDICATIONS : Transient ischemic attack. MEDICAL HISTORY : Hypertension. Carcinoma, prostate. Inguinal hernia. Depression. Alcohol use. SURGICAL HISTORY : Tonsillectomy. Cholecystectomy. Right knee replacement. Plates in left hand and arm. Inguinal herni a repair. ENCOUNTER: Initial ACUITY: 1 day PAIN SCORE: 0/10 LOCATION: Bilateral neck PEAK SYSTOLIC VELOCITIES (cm/sec): ICA/CCA RATIO: Right: 0.9 Left: 0.8 ICA: Right: 92 Left: 83 CCA: Right: 108 Left: 102 ECA: Right: 59 Left: 81 VERTEBRAL: Right: 32 antegrade Left: 58 antegrade Elevated flow velocities and ICA/CCA ratios have been found to correlate with increased degrees of vessel stenosis, calculated as percentage of diameter relative to a normal segment of distal ICA/CCA FINDINGS: RIGHT CAROTID: No significant stenosis is visualized. The waveforms are within normal limits. LEFT CAROTID: No significant stenosis is visualized. The waveforms are within normal limits. VERTEBRAL ARTERIES: Antegrade flow is seen in both vertebral arteries. MISCELLANEOUS: None. CONCLUSION: Normal examination for a patient of this age. Robel Mantilla MD on November 01, 2017 at 16:53 Board Certified Radiologist. This report was verified electronically.
--- NOTE | 2017-11-01 19:13 | MG ---
cc: Harley Gordon MD ELECTROENCEPHALOGRAM NUMBER: [id number] INDICATION: Possible TIA, drinking a beer, became stuporous, went unresponsive, right-sided facial droop, shaking. Aspirin, Lexapro. DESCRIPTION: Symmetric 9 Hz, 60 mV posterior rhythm is seen. No hemisphere asymmetries are noted. No epileptiform or seizure activity is seen. Patient falls asleep with a vertex sharp wave. Patient is noted to be snoring. Photic stimulation is performed but the patient is still sleeping. No posterior driving is noted. IMPRESSION: I did not see any definite epileptiform activity. Occasionally, on the left temporal region in the transverse montages during sleep, so maybe a little bit of sharply contoured waves, such as at epoch 94, but I was not impressed that they were definitely epileptiform as the patient is asleep and there is a lot of going in and out of stage II sleep throughout the recording. Clinical correlation is needed. MD MORIS Orellana/BRYAN , 06:50 PM , 07:11 PM
[2017-11-02] VITALS: BP 134/63; PULSE 59; RESP 20; TEMP 97.1; O2SAT 98
--- NOTE | 2017-11-02 07:30 | HHI.PR ---
Subjective Remarks hr in 50s Objective Vital Signs Date Time Temp Pulse Resp B/P (MAP) Pulse Ox O2 Delivery O2 Flow Rate FiO2 11/02/17 00:00 97.1 59 20 134/63 (86) 98 11/01/17 20:00 97.4 55 20 135/78 (97) 96 140/84 (102) 142/88 (106) 11/01/17 20:00 60 11/01/17 18:15 146/86 (106) 11/01/17 16:00 97.3 93 18 150/79 (102) 95 150/84 (106) 163/103 (123) 11/01/17 12:00 97.3 58 18 137/76 (96) 96 139/93 (108) 156/81 (106) 11/01/17 08:01 55 11/01/17 08:00 97.7 55 18 133/85 (101) 97 I/O 11/01/17 11/01/17 11/01/17 11/02/17 11/02/17 11/02/17 07:00 15:00 23:00 07:00 15:00 23:00 Output Total 250 ml Balance -250 ml Output Urine Total 250 ml # Voids 1 4 Result Diagram: 10/31/17 1536 11/01/17 1008 Assessment and Plan Assessment and Plan imp ok to dc if ok by cards nurse tells me no new spells did well overnoc some bp too high stand bp ok hr 50s fu office for repeat eeg after dc Harley Gordon MD Nov 02, 2017 07:30
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
[2017-11-02 08:00] VITALS: BP 141/80; PULSE 54; RESP 14; O2SAT 96
[2017-11-02] MEDS: ESCITALOPRAM OXALATE 10 MG TAB PO SCH (08:54)
[2017-11-02] MEDS: PANTOPRAZOLE SOD 40 MG DELAYED RELEASE TAB PO SCH (08:54)
[2017-11-02] MEDS: ASPIRIN 325 MG TAB PO SCH (08:54)
[2017-11-02] MEDS: SODIUM CHLORIDE 0.9% FLUSH 10 ML FLUSH IV FLUSH SCH (09:00)
[2017-11-02] MEDS ORDERED: LOSARTAN 25 MG TAB PO SCH (09:00)
[2017-11-02] MEDS ORDERED: REGADENOSON INJ 0.4 MG/5 ML SYR IV ONE (10:20)
--- NOTE | 2017-11-02 10:43 | MB ---
cc: Harley Gordon MD DATE OF CONSULT: 11/01/2017 HISTORY OF PRESENT ILLNESS: This is a 62-year-old right handed man with a history of hypertension, prostate cancer. He does not take an aspirin a day. He was in his garage drinking a beer when he suddenly felt like his balance was off. He got cold and clammy, hot all over. The TV seemed extra bright to him. He went in his bedroom and evidently passed out. He does not remember actually passing out. He was out for about 10 seconds he thinks and then woke up. No asymmetrical weakness or numbness. No headache, no chest pain or palpitation with it. No incontinence or tongue biting. No odd smells, taste or thomas vu by history. The daughter thought maybe there was some right facial droop. He did not notice any asymmetrical weakness or numbness. REVIEW OF SYSTEMS: He denies any history of diabetes, hypercholesterolemia, [place], CABG, cardiac arrhythmia, stent, angioplasty, atrial fibrillation, Coumadin. He had a stress test many years ago. He denies any renal, hepatic or pulmonary disease, thyroid disease, lupus, ulcer, cancer, seizure or stroke. SOCIAL HISTORY: Nonsmoker. Has about 2 beers a day and lives with his . FAMILY HISTORY: Positive for cancer. Negative for seizure. Positive stroke in his mother. ALLERGIES: NO KNOWN DRUG ALLERGIES. MEDICATIONS: Cetirizine, losartan, citalopram, Protonix. PHYSICAL EXAMINATION: VITAL SIGNS: He has been in sinus rhythm here. Some sinus kristin down to 55. Standing blood pressures have been normal to elevated. Initially his blood pressure was 82/60 when he came in. He is afebrile . HEENT, NEUROLOGIC, MUSCULOSKELETAL: Visual vincent are full. Extraocular movements intact, without nystagmus. Face symmetric, with normal sensation. Tongue was midline. There is no drift. He had normal strength in upper and lower extremities bilaterally. DTRs trace throughout. Toes downgoing bilaterally. Pin prick is intact throughout and he had normal gait. Speech is fluent. He is not aphasic. No facial droop. Normal speech. LABORATORY DATA: SED rate was normal. CBC is normal. Urine drug screen positive for marijuana only. Alcohol level was 3. His UA was negative. Coags are normal. Basic metabolic profile was normal. Glucose 130. LFTs were normal. Troponin was negative. LDL was normal. B12, thyroid was normal. IMAGING: Carotid ultrasound normal. MRA of the [place] of [place] was normal. CTA of his chest which was negative for PE. He had a chest x-ray which showed some widened mediastinum. No acute intracranial findings on his CT. Maybe a tortuous or dilated aorta. Brain MRI was normal. EEG showed mainly stage II sleep. There was a questionable slight sharpness on the left versus just a sleep variant. No impressive seizure activity was noted. Review of the MRI of the brain that is normal with and without contrast. No left-sided abnormalities are noted. ECHOCARDIOGRAM: Has been ordered, results are not here. IMPRESSION AND PLAN: Syncopal episode. I think unlikely that this is a primary neurological problem. I think it is more likely low blood pressure issue. In fact, his blood pressure was a little bit low when he came in, has not been since. I am recommending having Cardiology see him for his syncope, but now, we will just put him on an aspirin a day and it will be okay to be discharged if Cardiology clears him. He can followup with me in the office about the mild variant on the EEG, but I do not suspect seizure from his history. MD MORIS Orellana/PRAVEEN , 08:56 PM , 10:44 PM
[2017-11-02 12:00] VITALS: BP 155/79; PULSE 61; RESP 14; TEMP 97.2; O2SAT 99
--- NOTE | 2017-11-02 12:25 | RADRPT ---
EXAM DATE/TIME: 11/02/2017 10:09 [facility] COMPARISON: No previous studies available for comparison. INDICATIONS : Syncopal episode with chest pressure. Abnormal EKG. DOSE: 30.2 mCi Tc99m Myoview at stress. 10.1 mCi Tc99m Myoview at rest. 0.4 mg Lexiscan STRESS SYMPTOMS: None. EJECTION FRACTION: 48% MEDICAL HISTORY : Carcinoma, prostate. Hypertension. Gastroesophageal reflux disease. SURGICAL HISTORY : Tonsillectomy. Cholecystectomy. Inguinal hernia repair. ENCOUNTER: Initial ACUITY: 1 day PAIN SCALE: 3/10 LOCATION: Midsternal chest TECHNIQUE: The patient underwent pharmacologic stress with infusion of prescribed dose. Continuous ECG tracing was monitored during stress. Gated SPECT imaging was performed after stress and conventional SPECT i maging was performed at rest. The examination was performed on a SPECT/CT scanner, both attenuation and non-corrected datasets were reviewed. FINDINGS: DISTRIBUTION: The maximum perfused segment at stress is in the septal wall. PERFUSION STUDY: The pattern of perfusion at stress is within normal limits. GATED STUDY: There is intact wall motion and thickening without hypokinetic or dyskinetic segments. CONCLUSION: 1. No reversible perfusion defect to indicate stress-induced myocardial ischemia is identified. RISK CATEGORY: Low (<1% Annual Mortality Rate) Kelechi Degroot MD on November 02, 2017 at 12:22 Board Certified Radiologist. This report was verified electronically.
--- NOTE | 2017-11-02 12:55 | ECHRPT ---
Indication: TIA CONCLUSIONS The left ventricular systolic function is normal with an estimated ejection fraction in the range of 60-65%. Normal left ventricular size. Wall thickness is normal. No regional wall motion abnormalities are present. Trace mitral valve regurgitation. Aortic valve sclerosis is present. Trace aortic valve regurgitation. Trivial pulmonary valve regurgitation. BP: 134 / 63 HR: 86 Rhythm: Sinus MEASUREMENTS (Male / Female) Normal Values Technical Quality:Good 2D ECHO LV Diastolic Diameter PLAX 5.0 cm 4.2 - 5.9 / 3.9 - 5.3 cm LV Systolic Diameter PLAX 3.4 cm IVS Diastolic Thickness 1.1 cm 0.6 - 1.0 / 0.6 - 0.9 cm LVPW Diastolic Thickness 1.1 cm 0.6 - 1.0 / 0.6 - 0.9 cm LV Relative Wall Thickness 0.4 RV Internal Dim ED PLAX 2.9 cm LVOT Diameter 2.2 cm LA Systolic Diameter LX 3.2 cm 3.0 - 4.0 / 2.7 - 3.8 cm LV Ejection Fraction MOD 4C 62.7 % LV Cardiac Index MOD 4C 2385.6 cm/minm LV Ejection Fraction 4C AL 63.8 % LV Cardiac Index 4C AL 2517.0 cm/minm M-MODE Aortic Root Diameter MM 3.3 cm LA Systolic Diameter MM 3.3 cm LA Ao Ratio MM 1.0 AV Cusp Separation MM 2.2 cm DOPPLER AV Peak Velocity 141.0 cm/s AV Peak Gradient 8.0 mmHg LVOT Peak Velocity 118.0 cm/s LVOT Peak Gradient 5.6 mmHg AV Area Cont Eq pk 3.2 cm MV Area PHT 4.1 cm Mitral E Point Velocity 102.0 cm/s Mitral A Point Velocity 63.2 cm/s Mitral E to A Ratio 1.6 LV E' Lateral Velocity 5.2 cm/s Mitral E to LV E' Lateral Ratio 19.7 PV Peak Velocity 90.9 cm/s PV Peak Gradient 3.3 mmHg FINDINGS LEFT VENTRICLE The left ventricular systolic function is normal with an estimated ejection fraction in the range of 60-65%. Normal left ventricular size. Wall thickness is normal. No regional wall motion abnormalities are present. RIGHT VENTRICLE Normal right ventricular size and systolic function. LEFT ATRIUM The left atrial size is normal. RIGHT ATRIUM The right atrial size is normal. ATRIAL SEPTUM Normal atrial septal thickness without atrial level shunting by limited color doppler interrogation. AORTA The aortic root and proximal ascending aorta are normal in size on limited imaging. MITRAL VALVE Structurally normal mitral valve. Trace mitral valve regurgitation. AORTIC VALVE Trileaflet aortic valve. Aortic valve sclerosis is present. Trace aortic valve regurgitation. TRICUSPID VALVE Structurally normal tricuspid valve. No tricuspid valve stenosis or regurgitation. PULMONARY VALVE Trivial pulmonary valve regurgitation. VESSELS The inferior vena cava is normal in size. PERICARDIUM No pericardial effusion. Enoc Blackman MD, FACC (Electronically Signed) Final Date:02 November 2017 12:53
--- NOTE | 2017-11-02 13:23 | HHI.PR ---
Subjective Remarks No complaints. He feels fine. Objective Vitals Vital Signs Date Time Temp Pulse Resp B/P (MAP) Pulse Ox O2 Delivery O2 Flow Rate FiO2 11/02/17 08:00 54 14 141/80 (100) 96 11/02/17 00:00 97.1 59 20 134/63 (86) 98 11/01/17 20:00 97.4 55 20 135/78 (97) 96 140/84 (102) 142/88 (106) 11/01/17 20:00 60 11/01/17 18:15 146/86 (106) 11/01/17 16:00 97.3 93 18 150/79 (102) 95 150/84 (106) 163/103 (123) Result Diagram: 10/31/17 1536 11/01/17 1008 Other Results Laboratory Tests Test 10/31/17 15:36 10/31/17 17:23 10/31/17 21:25 11/01/17 10:08 White Blood Count 7.4 TH/MM3 Red Blood Count 4.22 MIL/MM3 Hemoglobin 14.1 GM/DL Hematocrit 40.0 % Mean Corpuscular Volume 94.7 FL Mean Corpuscular Hemoglobin 33.3 PG Mean Corpuscular Hemoglobin Concent 35.1 % Red Cell Distribution Width 11.3 % Platelet Count 208 TH/MM3 Mean Platelet Volume 7.3 FL Neutrophils (%) (Auto) 59.8 % Lymphocytes (%) (Auto) 27.7 % Monocytes (%) (Auto) 10.2 % Eosinophils (%) (Auto) 1.6 % Basophils (%) (Auto) 0.7 % Neutrophils # (Auto) 4.4 TH/MM3 Lymphocytes # (Auto) 2.0 TH/MM3 Monocytes # (Auto) 0.8 TH/MM3 Eosinophils # (Auto) 0.1 TH/MM3 Basophils # (Auto) 0.1 TH/MM3 CBC Comment DIFF FINAL Differential Comment Prothrombin Time 10.1 SEC Prothromb Time International Ratio 1.0 RATIO Activated Partial Thromboplast Time 22.4 SEC Blood Urea Nitrogen 15 MG/DL 15 MG/DL Creatinine 1.20 MG/DL 0.96 MG/DL Random Glucose 130 MG/DL 147 MG/DL Total Protein 7.2 GM/DL Albumin 3.7 GM/DL Calcium Level 7.9 MG/DL 8.1 MG/DL Alkaline Phosphatase 65 U/L Aspartate Amino Transf (AST/SGOT) 21 U/L Alanine Aminotransferase (ALT/SGPT) 30 U/L Total Bilirubin 0.5 MG/DL Sodium Level 139 MEQ/L 140 MEQ/L Potassium Level 3.4 MEQ/L 4.0 MEQ/L Chloride Level 103 MEQ/L 107 MEQ/L Carbon Dioxide Level 26.7 MEQ/L 25.8 MEQ/L Anion Gap 9 MEQ/L 7 MEQ/L Estimat Glomerular Filtration Rate 61 ML/MIN 79 ML/MIN Total Creatine Kinase 91 U/L Troponin I LESS THAN 0.02 NG/ML LESS THAN 0.02 NG/ML Ethyl Alcohol Level 3 MG/DL Urine Collection Type CLEAN CATCH Urine Color YELLOW Urine Turbidity CLEAR Urine pH 5.5 Urine Specific [place] LESS/EQUAL 1.005 Urine Protein NEG mg/dL Urine Glucose (UA) NEG mg/dL Urine Ketones NEG mg/dL Urine Occult Blood TRACE Urine Nitrite NEG Urine Bilirubin NEG Urine Urobilinogen 0.2 MG/DL Urine Leukocyte Esterase NEG Urine RBC 0-3 /hpf Urine WBC 0-2 /hpf Urine Fine Granular Casts 6-9 /lpf Microscopic Urinalysis Comment CULT NOT INDICATED Urine Opiates Screen NEG Urine Barbiturates Screen NEG Urine Amphetamines Screen NEG Urine Benzodiazepines Screen NEG Urine Cocaine Screen NEG Urine Cannabinoids Screen POS Erythrocyte Sedimentation Rate 6 mm/hr Triglycerides Level 282 MG/DL Cholesterol Level 172 MG/DL LDL Cholesterol 69 MG/DL HDL Cholesterol 46.2 MG/DL Cholesterol/HDL Ratio 3.72 RATIO Vitamin B12 Level 513 PG/ML Free Thyroxine 0.77 NG/DL Thyroid Stimulating Hormone 3rd Gen 0.761 uIU/ML Test 11/01/17 12:05 Rapid Plasma Reagin NON-REACTIVE Imaging Last Impressions Myocardial Perfusion Scan Nuc Med 11/02/17 0000 Signed Impressions: Service Date/Time: Thursday, November 02, 2017 10:09 - CONCLUSION: 1. No reversible perfusion defect to indicate stress-induced myocardial ischemia is identified. RISK CATEGORY: Low (<1%% Annual Mortality Rate) Kelechi Degroot MD Head Magnetic Resonance Angiography 11/01/17 0000 Signed Impressions: Service Date/Time: Wednesday, November 01, 2017 08:35 - CONCLUSION: 1. 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 2. Otherwise normal exam without evidence of significant atherosclerotic disease, vasculopathy, aneurysm or vascular displacement Uli Thibodeaux MD Carotid Artery Ultrasound 11/01/17 Signed Impressions: Service Date/Time: Wednesday, November 01, 2017 15:51 - CONCLUSION: Normal examination for a patient of this age. Robel Mantilla MD Brain MRI 11/01/17 Signed Impressions: Service Date/Time: Wednesday, November 01, 2017 08:35 - CONCLUSION: 1. Unremarkable exam. 2. No evidence of acute infarct, hemorrhage, mass or edema. 3. No enhancing intra-or extra axial lesions. Uli Thibodeaux MD CT Angiography [id number]/31/171541 Signed Impressions: Service Date/Time: Tuesday, October 31, 2017 15:49 - CONCLUSION: No evidence of pulmonary embolus Quang Butterfield MD Head CT [id number]/31/[id number] Signed Impressions: Service Date/Time: Tuesday, October 31, 2017 15:46 - CONCLUSION: No acute intracranial findings. Quang Butterfield MD Chest X-Ray 10/31/171529 Signed Impressions: Service Date/Time: Tuesday, October 31, 2017 15:38 - CONCLUSION: Widened mediastinal silhouette air present tortuous or dilated aorta. Mildly prominent cardiac silhouette. Quang Butterfield MD Last Impressions Head Magnetic Resonance Angiography 11/01/17 Signed Impressions: Service Date/Time: Wednesday, November 01, 2017 08:35 - CONCLUSION: 1. 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 2. Otherwise normal exam without evidence of significant atherosclerotic disease, vasculopathy, aneurysm or vascular displacement Uli Thibodeaux MD Brain MRI 11/01/17 Signed Impressions: Service Date/Time: Wednesday, November 01, 2017 08:35 - CONCLUSION: 1. Unremarkable exam. 2. No evidence of acute infarct, hemorrhage, mass or edema. 3. No enhancing intra-or extra axial lesions. Uli Thibodeaux MD CT Angiography 10/31/17 154 Signed Impressions: Service Date/Time: Tuesday, October 31, 2017 15:49 - CONCLUSION: No evidence of pulmonary embolus Quang Butterfield MD Head CT [id number]/31/[id number] Signed Impressions: Service Date/Time: Tuesday, October 31, 2017 15:46 - CONCLUSION: No acute intracranial findings. Quang Butterfield MD Chest X-Ray 10/31/17 1530 Signed Impressions: Service Date/Time: Tuesday, October 31, 2017 15:38 - CONCLUSION: Widened mediastinal silhouette air present tortuous or dilated aorta. Mildly prominent cardiac silhouette. Quang Butterfield MD His 2D echo was unremarkable. Objective Remarks Exam: [id number] in no distress. HEENT: Pupils equal, no scleral icterus, mouth negative Neck: No JVD Heart: RRR without murmur Lungs: clear Abdomen: Soft, nontender Extremities: No edema Neuro: alert, oriented, normal motor and sensory exam, Cranial nerves intact A/P Assessment and Plan Assessment: --Syncopal episode--likely vasovagal or from low blood pressure --Episode of some slight slurred speech and slight confusion likely from his hypotensive event --Hypertension --Cancer of the prostate gland on surveillance only --Depression --Allergic rhinitis --GERD --Mild elevation of triglycerides with normal cholesterol levels--would recommend just diet therapy Plan: His imaging studies have been negative. Seen by neurology (Dr Gordon) who did not think his symptoms were neurological in origin and he requested a cardiology consult and they recommended an myocardial perfusion scan which was done this morning and his negative. His 2D echo was good. His telemetry has not showed any arrhythmias. He will be discharged today. I did resume his Losartan today but at 25mg daily instead of 50mg daily he was on at home. He will take an aspirin daily. He will followup with his PCP (Dr Niño) in one week. Toni Singleton MD Nov 02, 2017 13:23
[2017-11-02] MEDS ORDERED: ESCI10TA PO (13:30)
[2017-11-02] MEDS ORDERED: ASA325 PO (13:30)
[2017-11-02] MEDS ORDERED: COZA25TA PO (13:30)
--- NOTE | 2017-11-02 18:26 | EKG ---
Date Performed: 11/01/2017 Time Performed: 06:05:20 PTAGE: 62 years EKG: SINUS BRADYCARDIA VOLTAGE CRITERIA FOR LVH MINIMAL ST DEPRESSION ABNORMAL ECG PREVIOUS TRACING : 10/31/2017 15.27 Since the prior tracing, there has been no significant lee DOCTOR: Karissa Bailey Interpretating Date/Time 11/02/2017 18:24:48
--- NOTE | 2017-11-05 14:34 | HM ---
Date Performed: 11/01/2017 Time Performed: 17:05:00 HOOKUP DATE: 11/01/17 05:05:00 PM Sun ANALYSIS START TIME: 11/01/2017 5:10:00 PM ANALYSIS END TIME: 11/02/2017 5:14:00 PM PATIENT AGE: 62 PATIENT HEIGHT PATIENT WEIGHT DRUG LIST PATIENT DIAGNOSIS: poss tia TEST NARRATIVE: The patient's average heart rate was 57 BPM. No episodes of tachycardia wer e noted. Heart rates less than 50 BPM were noted 28% of the time. No pauses exceeding 2.0 second s were noted. 260 ventricular ectopics, which represented < 1% of the total beat count, were note d. The highest ventricular ectopic frequency occurred from 07:00 PM to 08:00 PM Sun. During this ti me 33 VE(s) occurred. Ventricular ectopics were observed as 258 isolated beat(s) and as 1 couplet(s) . No runs were noted. 28 supraventricular ectopics, which represented < 1% of the total beat cou nt, were noted. The highest supraventricular ectopic frequency occurred from 11:00 PM to 12:00 AM Mo n. During this time 5 SVE(s) occurred. No episodes of ST depression (defined as -1.0 mm or more) were noted in channel 1. No episodes of ST depression (defined as -1.0 mm or more) were noted in ch ami 2. No episodes of ST depression (defined as -1.0 mm or more) were noted in channel 3. NO DIARY RETURNED TEST INTERPRETATION: The patient undergoes a Holter monitor to see if there is any rhythm distur bance to explain his TIA. The basic rhythm is sinus and there is no diary provided. Only the expanded tracings are provided for interpretation. The patient has occasional PACs and PVCs. There is one stefano tricular couplet but no ventricular tachycardia. CONCLUSIONS: 1. Normal Sinus rhythm with occasional PACs and PVC. 2. One ventricular couplet but no complex ventricular ectopy. 3. No ab normal supraventricular tachycardia and no significant Jared arrhythmias. 4. No diary provided. Signed by : Karissa Bailey
== END 2017-11-02 14:25 | disposition home or self-care (01) ==
LOC: PHED 15:23 → INTOOBSV 16:55 → PHEDA 16:55 → PH3A 20:51
PROVIDERS: ADMIT Family Medicine; ATTEND Family Medicine
DX: R55 Syncope and collapse (principal); R42 Dizziness and giddiness; R47.81 Slurred speech; R07.9 Chest pain, unspecified; E78.1 Pure hyperglyceridemia; R51 Headache; R61 Generalized hyperhidrosis; R41.82 Altered mental status, unspecified; I95.9 Hypotension, unspecified; I49.3 Ventricular premature depolarization; R00.1 Bradycardia, unspecified; R94.31 Abnormal electrocardiogram [ECG] [EKG]; I10 Essential (primary) hypertension; C61 Malignant neoplasm of prostate; K21.9 Gastro-esophageal reflux disease without esophagitis; N40.0 Benign prostatic hyperplasia without lower urinary tract symptoms; J30.9 Allergic rhinitis, unspecified; F32.9 Major depressive disorder, single episode, unspecified; Z87.891 Personal history of nicotine dependence
CPT/HCPCS: 70450; 70544; 70553; 71045; 71275; 78452; 80048; 80053; 80061; 80307; 81001; 82550; 82607; 82948; 84425; 84439; 84443; 84484; 85025; 85610; 85652; 85730; 86592; 92610; 93005; 93017; 93225; 93226; 93306; 93880; 95819; 96360; 96361; 97161; 97165; 99285; A9502; A9579; G0378; J2785; J7030; Q9967